=== PATIENT | male | born 1960 | race Caucasian/White ===

== ENCOUNTER 2024-11-27 10:02 | Outpatient (CLI) | payer MEDICARE, SELFPAY ==
--- NOTE | ~2024-11-27 | CT_ITS ---
EXAMINATION: CT orbit BI wo con DATE: 11/27/2024 10:50 INDICATION: Proptosis TECHNIQUE: Computed tomography (CT) of the orbits was performed without intravenous contrast. Automat ed exposure control and iterative reconstruction technique were employed. The dose-length product was 159.53 mGy-cm. COMPARISON: None FINDINGS: There is an expansile sclerotic lesion centered in the greater wing of the left sphenoid bone which d emonstrates relatively dense groundglass appearance with loss of cortical and medullary differentiati on. Significant portions of the margins of the lesion demonstrate feathery spiculated appearance. The re are a few prominent central lucent vascular channels which appear to arise from the left meningeal artery. There is no evident lytic component or evident extraosseous soft tissue mass. The lesion extends into the superolateral wall of the left orbit with expansion of the bone significa ntly decreasing the volume of the posterior two thirds of the left orbit with secondary proptosis of the left lobe. Mass effect also results in distortion of the course of the ocular muscles particularl y the lateral rectus muscle which is bowed medially. There is also interval expansion involving the a nterior aspect of the left middle cranial fossa to lesser degree the left anterior cranial fossa but which relatively large volume of the cranial vault and likely slow development is of doubtful clinica l significance. The visualized portions of the ventricles are normal and symmetric although there is approximately 4 mm left to right midline shift. The right orbit is normal. Old healed fractures of th e woody of the right maxillary sinus. Mild mucosal thickening in the paranasal sinuses. The bilateral mastoid air cells are hyperpneumatized. There is a right otomastoiditis effusion. IMPRESSION: 1. Expansile sclerotic lesion centered at the greater wing of the left sphenoid bone which results in volume loss of the left orbit and secondary proptosis. Given the spiculated margins and loss of qamar ical medullary differentiation would favor intraosseous meningioma over fibrous dysplasia. Although s piculations are typically considered aggressive features suspicious for malignant see their are no ev ident lytic or soft tissue components to otherwise elevate suspicion. Reviewed, dictated and finalized at location A. IMPRESSION: 1. Expansile sclerotic lesion centered at the greater wing of the left sphenoid bone which results in volume loss of the left orbit and secondary proptosis. G iven the spiculated margins and loss of cortical medullary differentiation woul d favor intraosseous meningioma over fibrous dysplasia. Although spiculations a re typically considered aggressive features suspicious for malignant see their are no evident lytic or soft tissue components to otherwise elevate suspicion.
--- OUTSIDE RECORDS SUMMARY | 2024-11-27 10:14 | XMS_ITS | Patient Health Record ---
Author Organization [facility] Address [address] [place] [address] Care Team Providers Care Marine Underwriter Name Role Phone Dr. Catarino Durant Primary Care Provider [phone] Migration, Provider Unavailable Unavailable Allergies Allergen (clinical drug ingredient) Drug/Non Drug Allergy documented on EMR Reaction Allergy Type Onset Date Status Grape Flavor Unknown Drug Allergy 10/27/2020 Act ishmael Results Component Value Reference Range Flag Notes Magnesium Reviewed date:10/03/2024 02:56:26 AM Interpretation: Performing Lab: Notes/Report: Test Performed by: [place] [address] Sister Superior: Brad Waldrop DO Magnesium Lvl 2.0 1.6-2.4 mg/dL Lipid Panel {Chol, Trig, HDL , LDL} Reviewed date:10/03/2024 02:56:26 AM Interpretation: Performing Lab: Notes/Report: Test Performed by: [place] [address] Sister Superior: Brad Waldrop DO Cholesterol Total 223 <=199 mg/dL H Triglycerides 128 0-149 mg/dL Triglyceride Reference Ranges: <150 mg/dL Normal 150 - 199 mg/dL Borderline High 200 - 499 mg/dL High >=500 mg/dL Very High LDL 135 <=100 mg/dL H LDL Optimal: <100 Near or above optimal: 100-129 Borderline high: 130-159 High: 160-189 Very high: >=190 Coronary heart disease risk factors should be considered when determining LDL goals. Please refer to ATPIII guidelines for further information. If LDL is not calculated, please call the lab to add on the direct LDL methodology, if desired. HDL 63 23-92 mg/dL Non HDL Cholesterol 161 <=130 mg/dL H Chol/HDL 4 0-5 Comprehensive Metabolic Pane l Reviewed date:10/03/2024 02:56:26 AM Interpretation: Performing Lab: Notes/Report: Test Performed by: Ivette Sanchez [address] [address] Sister Superior: Brad Waldrop DO Glucose Lvl 129 74-109 mg/dL H ADA risk stratification for diabetes <100 mg/dL = Normal 100-125 mg/dL = Increased risk for future diabetes >=126 mg/dL = Diabetes, if on more than one testing occasion BUN 16 7-25 mg/dL Creatinine Lvl 1.23 0.70-1.30 mg/dL eGFR CKD-EPI 65 >=90 mL/min/1.73 m2 L The CKD-EPI equation is validated in individuals 18 years of age and older. It is less accurate in patients with extremes of muscle mass, restriction of dietary protein, ingestion of creatine, extra-renal metabolism of creatinine, or treatment with medications that affect renal tubular creatinine secretion. GFR Categories in Chronic Kidney Disease (CKD) GFR GFR (mL/min/1.73 Category: square meters): Interpretation: G1 90 or greater Normal or high* G2 60-89 Mild decrease* G3a 45-59 Mild to moderate decrease G3b 30-44 Moderate to severe decrease G4 15-29 Severe decrease G5 14 or less Kidney failure *In the absence of evidence of kidney damage, neither GFR category G1 nor G2 fulfill the criteria for CKD (Kidney Int Suppl 2013;3:1-150) Calcium Lvl 9.6 8.6-10.3 mg/dL Sodium Lvl 142 136-145 mmol/L Potassium Lvl 4.3 3.5-5.1 mmol/L Chloride Lvl 106 98-107 mmol/L CO2 28 21-31 mmol/L Anion Gap 8.4 <=16.0 mmol/L Alk Phos 77 34-104 unit/L Bilirubin Total 0.3 0.3-1.0 mg/dL Albumin Lvl 4.0 3.5-5.2 g/dL Protein Total 6.5 6.4-8.9 g/dL Albumin/Globulin Ratio 1.6 1.1-2.5 ALT 19 7-52 unit/L AST 16 13-39 unit/L CBC w Auto Diff Reviewed date:10/03/2024 02:56:26 AM Interpretation: Performing Lab: Notes/Report: Test Performed by: [place] [id number] Sister Superior: Brad Waldrop DO WBC 9.4 4.0-11.7 K/mcL RBC 4.86 4.28-5.56 x10*6/mcL Hgb 12.8 13.0-17.0 g/dL L Hct 38.4 38.1-48.9 % MCV 79.1 83.4-98.1 fL L MCH 26.3 27.0-34.2 pg L MCHC 33.2 31.8-35.3 g/dL RDW 15.0 12.0-16.4 % Platelets 243 149-393 K/mcL MPV 10.3 7.0-11.0 fL Neutro Auto 71.3 45.3-79.0 % Lymph Auto 21.2 11.8-45.9 % [place] Auto 5.9 4.4-12.0 % Eosinophil Auto 0.8 0.0-6.3 % Basophil Auto 0.8 0.2-1.6 % Neutro Absolute 6.7 2.4-8.4 x10*3/mcL Lymph Absolute 2.0 0.8-3.7 x10*3/mcL [place] Absolute 0.6 0.3-1.1 x10*3/mcL Eos Absolute 0.1 0.0-0.5 x10*3/mcL Baso Absolute 0.1 0.0-0.1 x10*3/mcL Iron Panel Reviewed date:10/03/2024 02:56:26 AM Interpretation: Performing Lab: Notes/Report: Test Performed by: [place] [id number] Sister Superior: Brad Waldrop DO Iron Lvl 46 50-212 mcg/dL L Ferritin Lvl 7.3 23.9-336.2 ng/mL L Transferrin 317 203-362 mg/dL TIBC 443 250-420 mcg/dL H Iron Sat 10 20-55 % L PSA, Diagnostic Reviewed date:10/03/2024 02:56:26 AM Interpretation: Performing Lab: Notes/Report: Test Performed by: [place] [id number] Sister Superior: Brad Waldrop DO PSA Total 20.06 0.00-4.00 ng/mL H TSH Reflex Free T4 Reviewed date:10/03/2024 02:56:26 AM Interpretation: Performing Lab: Notes/Report: Test Performed by: Ivette Sanchez [address] [address] Sister Superior: Brad Waldrop DO TSH. 3.50 0.45-5.33 mcIU/mL Thyroid Stimulating Hormone Reviewed date:04/06/2024 12:00:00 AM Interpretation: Performing Lab: Notes/Report: TSH 2.53 mcIU/mL PSA Annual Screening Reviewed date:04/06/2024 12:00:00 AM Interpretation: Performing Lab: Notes/Report: PSA Total 19.19 ng/mL Magnesium Reviewed date:04/06/2024 12:00:00 AM Interpretation: Performing Lab: Notes/Report: Magnesium Lvl 2.1 mg/dL Lipid Panel {Chol, Trig, HDL , LDL} Reviewed date:04/06/2024 12:00:00 AM Interpretation: Performing Lab: Notes/Report: Chol/HDL 4 Cholesterol Total 225 mg/dL Coronary Risk 23 % HDL 51 mg/dL LDL 153 mg/dL NON HDL CHOLESTEROL 175 mg/dL Triglycerides 108 mg/dL Iron Level and TIBC Reviewed date:04/06/2024 12:00:00 AM Interpretation: Performing Lab: Notes/Report: Iron Lvl 117 mcg/dL Iron Sat 27 % TIBC 439 mcg/dL Transferrin 313 mg/dL Comprehensive Metabolic Pane l Reviewed date:04/06/2024 12:00:00 AM Interpretation: Performing Lab: Notes/Report: Albumin Lvl 4.1 g/dL Albumin/Globulin Ratio 1.7 Alk Phos 83 unit/L ALT 21 unit/L ANION GAP 4.3 mmol/L AST 17 unit/L Bilirubin Total 0.5 mg/dL BUN 17 mg/dL Calcium Lvl 10.1 mg/dL Chloride Lvl 105 mmol/L CO2 33 mmol/L Creatinine Lvl 1.11 mg/dL eGFR CKD-EPI 74 mL/min/1.73 m2 Glucose Lvl 93 mg/dL Potassium Lvl 4.8 mmol/L Protein Total 6.5 g/dL Sodium Lvl 142 mmol/L CBC w/ Diff Reviewed date:04/06/2024 12:00:00 AM Interpretation: Performing Lab: Notes/Report: Baso Absolute 0.1 x10*3/mcL Basophil Auto 1.1 % Eos Absolute 0.1 x10*3/mcL Eosinophil Auto 1.1 % Hct 42.5 % Hgb 14.3 g/dL Lymph Absolute 2.0 x10*3/mcL Lymph Auto 21.9 % MCH 28.2 pg MCHC 33.8 g/dL MCV 83.6 fL [place] Absolute 0.6 x10*3/mcL [place] Auto 6.1 % MPV 10.1 fL Neutro Absolute 6.4 x10*3/mcL Neutro Auto 69.8 % Platelets 256 K/mcL RBC 5.08 x10*6/mcL RDW 14.4 % WBC 9.2 K/mcL Reason For Referral No Information Medications Medication SIG (Take, Route, Frequency, Duration) Notes Start Date End Date Status Ferrous Sulfate 325 (65 Fe) MG Tablet Delayed Release TAKE 1 TABLET BY MOUTH EVERY DAY; Duration: 90 Active Tamsulosin HCl 0.4 MG Capsule 1 capsule Orally Once a day every evening Active Gabapentin 300 MG Capsule 1 capsule Orally Once a day Active Potassium 595 mg (99 mg) Tablet 1 Oral every day; Duration: 0 *Pick strength-form from [facility] for eRX* 12/31/2020 Active Imodium A-D 2 mg TABLET 1 ORAL two times a day; Duration: 0 10/04/2023 Active Fish Oil oral; Duration: 0 *[facility]* 01/03/2023 Active Multivitamin oral; Duration: 0 *[facility]* 01/03/2023 Active Famotidine 20 MG Tablet 1 tablet at bedtime as needed Orally Once a day Active Taina Allergy 60 MG Tablet 1 tablet Orally Twice a day Active Social History Social History Additional Details Category Social Info Options Details Migrated Social History Migrated Social History Alcohol history:Currently drinks alcohol ,notes : stopped in 2019. , Has the patient used marijuana?:Yes ,notes : Since the age of 7 , Tobacco history:Former smoker ,notes : smokeless tobacco user. Quit in 2019. , Frequency of drinks:7 drinks per week ,notes : daily; hard liquor- Sober since 2019 Problems Problem Type SNOMED Code ICD Code Onset Dates Problem Status W/U Status Risk Notes Problem Essential hypertension (82767360) Essential hypertension (I10) Active confirmed Problem Proptosis (54919791) Proptosis (H05.20) Active confirmed Problem Shoulder joint pain (592150380) Pain in joint, shoulder region (719.41) 03/23/20 17 Problem resolved confirmed Problem Shortness of breath (757354636) Shortness of breath (786.05) 03/21/20 17 Problem resolved confirmed Problem Herpes zoster ophthalmicus (59259611) Other herpes zoster eye disease (B02.39) 09/21/19 22 Problem resolved confirmed Problem Anemia (123135996) Anemia, unspecified (D64.9) 07/06/19 23 Problem resolved confirmed Problem Pneumonia (221873225) Pneumonia, unspecified organism (J18.9) 05/25/19 19 Problem resolved confirmed Problem Prostatitis (3803207) Inflammatory disease of prostate, unspecified (N41.9) 09/25/19 22 Problem resolved confirmed Problem Dyspnea (154332774) Dyspnea, unspecified (R06.00) 03/21/20 17 Problem resolved confirmed Problem Spasm (80558962) Cramp and spasm (R25.2) 09/21/19 22 Problem resolved confirmed Problem Suspected disease caused by Severe acute respiratory coronavirus 2 (situation) (955517797) Encounter for screening for COVID-19 (Z11.52) 08/24/19 22 Problem resolved confirmed Problem Pneumonia (817128168) Pneumonia, organism unspecified (486) 05/25/19 19 Problem resolved confirmed Problem Herpes zoster without complication (913054589) Herpes zoster without mention of complication (053.9) 07/29/19 18 Problem resolved confirmed Problem Other ophthalmic herpes zoster complications (053.29) 05/26/19 18 Problem resolved confirmed Problem Alcohol dependence (34742832) Alcohol dependence, uncomplicated (F10.20) 09/21/19 22 Inactive confirmed Problem Viral hepatitis type C (74449291) Unspecified viral hepatitis C without hepatic coma (B19.20) 10/29/19 21 Inactive confirmed Problem Lower urinary tract symptoms due to benign prostatic hypertrophy (91893660392753) Enlarged prostate with lower urinary tract symptoms (N40.1) 07/05/19 23 Active confirmed Problem Elevated PSA (482900210) Elevated prostate specific antigen [PSA] (R97.20) 10/27/19 22 Active confirmed Problem History of infectious disease (603307020) Personal history of other infectious and parasitic diseases (Z86.19) 04/04/20 23 Active confirmed Problem Abnormal feces (111988488) Other fecal abnormalities (R19.5) 10/05/19 23 Active confirmed Problem Melena (6030098) Melena (K92.1) 04/03/20 24 Active confirmed Problem Gastro-esophagea l reflux disease without esophagitis (848423613) Gastro-esophageal reflux disease without esophagitis (K21.9) 09/21/19 22 Active confirmed Problem Hypotension (34545721) Hypotension, unspecified (I95.9) 10/29/19 21 Active confirmed Problem Essential hypertension (45455585) Essential (primary) hypertension (I10) 04/03/20 24 Active confirmed Problem Chronic alcoholism in remission (075924699) Alcohol dependence, in remission (F10.21) 09/21/19 22 Active confirmed Problem Lipoma (00281804) Benign lipomatous neoplasm, unspecified (D17.9) 09/21/19 22 Active confirmed Problem Nondependent alcohol abuse (685301211) Nondependent alcohol abuse, unspecified pattern of use (305.00) 03/23/20 17 Problem resolved confirmed Problem Abnormal results of liver function studies (901724928) Abnormal results of liver function studies (R94.5) 07/06/19 23 Problem resolved confirmed Problem Eruption of skin (815115289) Rash and other nonspecific skin eruption (R21) 10/29/19 21 Problem resolved confirmed Problem Chest pain (29466394) Chest pain, unspecified (R07.9) 07/02/19 18 Problem resolved confirmed Problem Shortness of breath (515240790) Shortness of breath (R06.02) 10/29/19 21 Problem resolved confirmed Problem Cough (72044211) Cough (R05) 10/07/19 21 Problem resolved confirmed Problem Elevated blood pressure reading without diagnosis of hypertension (255390455) Elevated blood-pressure reading, without diagnosis of hypertension (R03.0) 03/21/20 17 Problem resolved confirmed Problem Spasm (88187142) Other muscle spasm (M62.838) 01/11/20 22 Problem resolved confirmed Problem Shoulder joint pain (298507160) Pain in left shoulder (M25.512) 03/23/20 17 Problem resolved confirmed Problem 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) 09/21/19 22 Problem resolved confirmed Problem Functional dyspepsia (9733589) Functional dyspepsia (K30) 09/21/19 22 Problem resolved confirmed Problem Chronic sinusitis (35912364) Chronic sinusitis, unspecified (J32.9) 08/24/19 22 Problem resolved confirmed Problem Orthostatic hypotension (26235360) Orthostatic hypotension (I95.1) 01/01/20 21 Problem resolved confirmed Problem Otitis media (88016341) Otitis media, unspecified, bilateral (H66.93) 08/24/19 22 Problem resolved confirmed Problem Alcohol abuse (72111193) Alcohol abuse, uncomplicated (F10.10) 03/23/20 17 Problem resolved confirmed Problem Herpes zoster without complication (801712958) Zoster without complications (B02.9) 10/29/19 21 Problem resolved confirmed Problem Elevated blood pressure reading without diagnosis of hypertension (524893822) Elevated blood pressure reading without diagnosis of hypertension (796.2) 03/21/20 17 Problem resolved confirmed Problem Precordial pain (31652779) Precordial pain (786.51) 07/02/19 18 Problem resolved confirmed Problem Iron deficiency anemia (48597680) Iron deficiency anemia, unspecified (D50.9) 04/03/20 24 Active confirmed Problem Frequency of micturition (008978354) Frequency of micturition (R35.0) 09/21/19 22 Problem resolved confirmed Vital Signs Heart Rate 88 /min 11/18/2024 Temperature 98.1 degrees Fahrenheit 11/18/2024 Height-cm 167.64 cm 11/18/2024 Blood pressure diastolic 78 mm Hg 11/18/2024 Oximetry 98 % 11/18/2024 Weight-kg 89.45 kg 11/18/2024 Height 66.00 in 11/18/2024 Blood pressure systolic 138 mm Hg 11/18/2024 Weight 197.2 lbs 11/18/2024 BMI 31.83 kg/m2 11/18/2024 Encounters Encounter Location Date Provider Diagnosis [address] [address] 04/05/2024 Dr. Catarino Durant Gastro-esophageal reflux disease without esophagitis K21.9 ; [place] K92.1 ; Alcohol dependence, in remission F10.21 ; Iron deficiency anemia, unspecified D50.9 ; Enlarged prostate with lower urinary tract symptoms N40.1 and Essential (primary) hypertension I10 [address] [address] 10/04/2024 Dr. Catarino Durant Essential hypertension I10 ; Elevated prostate specific antigen [PSA] R97.20 ; Iron deficiency anemia, unspecified D50.9 and [place] K92.[address] [address] 11/18/2024 Dr. Catarino Durant Essential hypertension I10 and Proptosis H05.[address] [address] 04/20/2024 Provider Migration [address] [address] 04/21/2024 Provider Migration [address] [address] 10/02/2024 Dr. Catarino Durant Abnormal results of liver function studies R94.5 ; Iron deficiency anemia, unspecified D50.9 ; Gastro-esophageal reflux disease without esophagitis K21.9 ; Essential (primary) hypertension I10 and Elevated prostate specific antigen [PSA] R97.20 Assessments Encounter Date Diagnosis (ICD Code) Assessment Notes Treatment Notes Treatment Clinical Notes Section Notes 10/04/2024 Essential hypertension (ICD-10 - I10) MEDICATIONS: Not on meds anymore but BP too high today. He will check at homeRECOMMENDA TIONS: adherence to a healthy diet and reduction of dietary salt intake. FOLLOWUP: Schedule a follow-up visit in 2 months 10/04/2024 Elevated prostate specific antigen [PSA] (ICD-10 - R97.20) 10/02/2024 Abnormal results of liver function studies (ICD-10 - R94.5) 11/18/2024 Essential hypertension (ICD-10 - I10) 11/18/2024 Proptosis (ICD-10 - H05.20) 04/05/2024 Iron deficiency anemia, unspecified (ICD-10 - D50.9) 04/05/2024 Alcohol dependence, in remission (ICD-10 - F10.21) 04/05/2024 Essential (primary) hypertension (ICD-10 - I10) 04/05/2024 Gastro-esophageal reflux disease without esophagitis (ICD-10 - K21.9) 04/05/2024 Mel[place] (ICD-10 - K92.1) 04/05/2024 Enlarged prostate with lower urinary tract symptoms (ICD-10 - N40.1) 10/04/2024 Iron deficiency anemia, unspecified (ICD-10 - D50.9) 10/02/2024 Iron deficiency anemia, unspecified (ICD-10 - D50.9) 10/02/2024 Gastro-esophageal reflux disease without esophagitis (ICD-10 - K21.9) 10/04/2024 [place] (ICD-10 - K92.1) 10/02/2024 Essential (primary) hypertension (ICD-10 - I10) 10/02/2024 Elevated prostate specific antigen [PSA] (ICD-10 - R97.20) Plan Of Treatment Pending Test Test Name Order Date CT Scan : Orbits 11/18/2024 Future Test Test Name Order Date CBC w Auto Diff 10/29/2024 Iron Level and TIBC 10/29/2024 Next Appt Details Provider Name:Dr. Catarino gutiérrez, 04/14/2025 09:00:00 AM, [address] [place], [address], [phone] Insurance Providers Payer Name Payer Address Payer Phone Subscriber Number Group Number Insured Name Patient Relationship to Insured Coverage Start Date Coverage End Date [employer] Medicare Attn Claims Department [address] [address] [place] [address] [id number] Tray Cunningham Self - patient is the insured Medical (General) History Medical History History ICD Code Iron deficiency anemia, unspecified D50. 9 Alcohol dependence, in remission F10.21 Essential (primary) hypertension I10 Hypotension, unspecified I95.9 Gastro-esophageal reflux disease without esophagitis K21.9 [place] K92.1 Essential hypertension I10 Surgical History Surgery Date(Month/Year) EGD and Colonoscopy with Dr. Covarrubias. Gastritis, gastric erosions, polyp, poor prep. Path- hyperplastic polyp with mild acute and chronic 01/11/2023
--- OUTSIDE RECORDS SUMMARY | 2024-11-27 10:14 | XMS_ITS | Clinical Summary ---
Author Organization [facility] Address [address] [place] [address] Care Team Providers Care Shirt Turner Name Role Phone Catarino Durant MD Primary Care Provider [phone] Allergies No known active allergies Medications albuterol sulfate HFA 108 (90 Base) MCG/ACT inhaler Inhale 2 puffs into the lungs every 4 (four) hours as needed. 9 Active carvedilol 6.25 MG tablet Take 6.25 mg by mouth 2 (two) times daily. 9 Active chlorthalidone 25 MG tablet Take 1 tablet by mouth daily. With Food 9 Active doxycycline hyclate 100 MG capsule TAKE 1 CAPSULE BY MOUTH TWICE A DAY FOR 10 DAYS 9 Active gabapentin 300 MG capsule Take 300 mg by mouth 4 (four) times daily. 9 Active lisinopril 20 MG tablet Take 20 mg by mouth daily. 0 Active multi vitamin/mineral s tablet Take 1 tablet by mouth daily. Active Na sulfate-K sulfate-Mg sulfate (SUPREP BOWEL PREP KIT) 17.5-3.13-1.6 GM/177ML SolutionIndicat ions:Screening for colon cancer Take 177 mLs by mouth every 12 (twelve) hours. Take as directed in the instructions 2 Bottle 0 Active famotidine (PEPCID) 40 MG tablet Take 1 tablet (40 mg total) by mouth nightly as needed (nausea, indigestion, reflux). 30 tablet 4 Active Active Problems No known active problems Family History Medical History Relation Comments cancer Father ulcer Father Relation Status Comments Father Social History Tobacco Use Types Packs/Day Years Used Date Smoking Tobacco: Former Smokeless Tobacco: Former Alcohol Use Standard Drinks/Week Comments Yes 0 (1 standard drink = 0.6 oz pur e alcohol) daily Sex and Gender Information Value Date Recorded Sex Assigned at Not on file Legal Sex Male 11:11 PM CDT Gender Identity Not on file Sexual Orientation Not on file Last Filed Vital Signs Vital Sign Reading Time Taken Comments Blood Pressure 132/91 08/02/2023 10:30 AM CDT Pulse 55 08/02/2023 10:30 AM CDT Temperature 36.2 C (97.1 F) 08/02/2023 9:25 AM CDT Respiratory Rate 15 08/02/2023 10:30 AM CDT Oxygen Saturation 97% 08/02/2023 10:30 AM CDT Inhaled Oxygen Concentration - - Weight 87.8 kg (193 lb 9 oz) 08/02/2023 9:25 AM CDT Height 167.6 cm (5' 6) 08/02/2023 9:25 AM CDT Body Mass Index 31.24 08/02/2023 9:25 AM CDT Plan of Treatment Health Maintenance Due Date Last Done Comments Hepatitis C 09/05/1977 DTaP, Tdap and Td Vaccines ( 1 - Tdap) 09/05/1978 Pneumococcal Vaccine: 50+ Years (1 of 1 - PCV) 09/05/2009 Zoster Vaccines (1 of 2) 09/05/2009 COVID-19 Vaccine (3 - 2023-2 5 season) 2024 09/05/2020, 08/08/2020 Colorectal Cancer Screening Colonoscopy (10 Years) 06/18/2029 06/18/2019 RSV Immunization or 60+ Years (1 - 1-dose 75+ series) 09/05/2034 Meningococcal B Vaccine Aged Out No l onger eligible based on patient's age to complete this topic Meningococcal Vaccine Aged Out No chandni megan eligible based on patient's age to complete this topic RSV Immunizations Under 20 Months Aged Out No longer eligible b ased on patient's age to complete this topic Procedures Procedure Name Priority Date/Time Associated Diagnosis Comments COLONOSCOPY/EGD GENERIC (SCA N ORDER) Routine 06/18/2019 from Last 3 Months or Most Recently Relevant to Health Maintenance Results * COLONOSCOPY/EGD (06/18/2019) us Documents Scanned SCANNING Edited Result - Final [facility] from Last 3 Months or Most Recently Relevant to Health Maintenance Advance Directives Documents on File Type Date Recorded Patient Manager Relationship Expl anation Advance Directives and Living Will 06/18/2019 12:00 AM ADVANCED DIRECTIVES Care Teams Shirt Turner Relationship Specialty Start Date End Date Catarino Durant MD [address] [place] [address] PCP - General PEDIATRICS 06/11/19
== END 2024-11-27 10:03 | disposition home or self-care (01) ==
PROVIDERS: PCP Pediatrics; Visit Provider Pediatrics
DX: D16.4 Benign neoplasm of bones of skull and face (principal); M89.8X8 Other specified disorders of bone, other site; H05.20 Unspecified exophthalmos
CPT/HCPCS: 70480